=== PATIENT | female | born 1990 | race Caucasian/White ===

== ENCOUNTER 2021-01-15 06:48 | Inpatient (IN) ==
[2021-01-15] MEDS ORDERED: BUTORPHANOL 2 MG/ML VIAL IV PRN (07:24)
[2021-01-15] MEDS ORDERED: miSOPROStoL 200 MCG TABLET PO ONE (07:34)
[2021-01-15 08:00] LABS: Basophils % 0.3 % (0.0-0.8); Eosinophils # 0.2 10*3/uL (0.0-0.87); Eosinophils % 1.8 % (0.00-10.9); Hematocrit 36.8 VOL% (35.7-47.0); Hemoglobin 12.4 GM/DL (12.0-16.0); Immature Granulocytes % 0.6 %; Immature Granulocytes Absolute 0.05 #; Lymphocytes # 1.7 10*3/uL (1.4-4.0); Lymphocytes % 19.7 % (21.3-54.2); Mean Corpuscular HGB Conc 33.7 GM/DL (32-36); Mean Corpuscular Volume 83.8 FL (87-102); Mean Platelet Volume 10.1 FL (9.6-12.0); Neutrophils % 70.6 % (38.7-73.9); Platelet Count 256 T/CUMM (130-400); Red Blood Count 4.39 MC/CUMM (3.8-5.5); Red Cell Distribution Width 13.2 % (9.3-17.3); White Blood Count 8.7 T/CUMM (4-12)
[2021-01-15] MEDS: miSOPROStoL 200 MCG TABLET PO SCH ×3 (12:16→20:32)
[2021-01-15] MEDS: ONDANSETRON 4 MG/2 ML VIAL IV PRN (19:12)
[2021-01-15] MEDS: MEPERIDINE 50 MG/1 ML VIAL IV PRN ×2 (19:16→23:31)
[2021-01-16] MEDS: miSOPROStoL 200 MCG TABLET PO SCH ×4 (00:32→13:54)
[2021-01-16] MEDS: ONDANSETRON 4 MG/2 ML VIAL IV PRN ×3 (06:00→15:47)
[2021-01-16] MEDS: MEPERIDINE 50 MG/1 ML VIAL IV PRN ×2 (06:05→19:12)
[2021-01-16] MEDS: LACTATED RINGERS 1,000 ML IV SCH ×3 (07:13→17:45)
[2021-01-16] MEDS ORDERED: hydrOXYzine HCL 25 MG/1 ML VIAL IM PRN (08:50)
[2021-01-16] MEDS ORDERED: ONDANSETRON 4 MG/2 ML VIAL IV ONE (08:50)
[2021-01-16] MEDS ORDERED: FAMOTIDINE 20 MG/2 ML VIAL IV ONE (08:50)
[2021-01-16] MEDS ORDERED: CITRIC ACID/SODIUM CITRATE 30 ML UDCUP PO ONE (08:50)
[2021-01-16] MEDS ORDERED: LACTATED RINGERS 1,000 ML IV ONE (08:50)
[2021-01-16] MEDS ORDERED: diphenhydrAMINE 50 MG/1 ML VIAL IV PRN ×2 (08:50)
[2021-01-16] MEDS ORDERED: PROMETHAZINE 25 MG/1 ML VIAL IM ONE (08:50)
[2021-01-16] MEDS ORDERED: ePHEDrine 50 MG/ML VIAL IV PRN (08:50)
[2021-01-16] MEDS ORDERED: NALOXONE 0.4 MG/ML VIAL IV PRN (08:50)
[2021-01-16] MEDS: fentaNYL 2 MCG/ROPIV 0.2% EPID 100 ML EPIDURAL SCH ×2 (09:44→17:58)
[2021-01-16 11:00] LABS: Bilirubin,Urine Negative (Negative); Blood, Urine Negative (Negative); Glucose,Urine (UA) Negative (Negative); Ketones,Urine 5 mg/dL (Negative); Mucus,Urine Few /LPF (Occasional); Nitrite,Urine Negative (Negative); Protein,Urine Negative; RBC,Urine <1 /HPF (0-4); Squamous Epithelial Cell,Urine Occasional /HPF (0-10); Urine Appearance CLEAR (Clear); Urine Color Yellow (Yellow); Urine Specific Gravity 1.016 (1.001-1.035); Urine Urobilinogen < 2.0 EU/DL (0.2-1.0)
[2021-01-16] MEDS ORDERED: ceFAZolin 2,000 MG in PREMIX 1 EACH IV ONE ×2 (19:22→19:29)
[2021-01-16] MEDS ORDERED: OXYTOCIN/LR 20 UNIT/1,000 ML BAG IV ONE ×2 (19:28→19:33)
[2021-01-16] MEDS ORDERED: MEPERIDINE 50 MG/1 ML VIAL IV ONE (20:00)
[2021-01-16 20:02] LABS: Basophils % 0.3 % (0.0-0.8); Eosinophils # 0.2 10*3/uL (0.0-0.87); Eosinophils % 2.3 % (0.00-10.9); Hematocrit 33.4 VOL% (35.7-47.0); Hemoglobin 11.3 GM/DL (12.0-16.0); Immature Granulocytes % 0.3 %; Immature Granulocytes Absolute 0.03 #; Lymphocytes # 1.8 10*3/uL (1.4-4.0); Mean Corpuscular HGB Conc 33.8 GM/DL (32-36); Mean Corpuscular Volume 84.8 FL (87-102); Mean Platelet Volume 9.8 FL (9.6-12.0); Monocytes % 6.2 % (1.7-12.7); Neutrophils % 70.9 % (38.7-73.9); Platelet Count 251 T/CUMM (130-400); Red Blood Count 3.94 MC/CUMM (3.8-5.5); Red Cell Distribution Width 13.2 % (9.3-17.3); White Blood Count 9.2 T/CUMM (4-12)
[2021-01-17] MEDS ORDERED: IBUPROFEN 800 MG TABLET PO PRN (03:01)
[2021-01-17] MEDS ORDERED: oxyCODONE/ACETAMINOPHEN 5-325 MG TABLET PO ONE (04:34)
[2021-01-17] MEDS ORDERED: OXYTOCIN/LR 20 UNIT/1,000 ML BAG IV ONE (06:27)
== END 2021-01-17 14:55 | disposition home or self-care (01) | DRG 779 ==
LOC: N.LD 06:48
PROVIDERS: ADMIT Obstetrics & Gynecology; ATTEND Obstetrics & Gynecology